=== PATIENT | female | born 1990 | race Two or more races ===

== ENCOUNTER 2024-07-24 19:34 | Emergency (ER) | payer OTHER ==
[~2024-07-24] VITALS: Ht 157.5 cm; Wt 52.2 kg
[2024-07-24] MEDS ORDERED: ORPHENADRINE CITRATE 30 MG/ML AMPUL IM STA (20:51)
[2024-07-24] MEDS ORDERED: DEXAMETHASONE SODIUM PHOSPHATE 4 MG/ML VIAL IM STA (20:51)
[2024-07-24] MEDS ORDERED: KETOROLAC TROMETHAMINE 60 MG VIAL IM STA (20:52)
[2024-07-24] MEDS ORDERED: PANTOPRAZOLE SODIUM 40 MG TABLET.DR PO STA (20:55)
[2024-07-24] MEDS ORDERED: ORPHENADRINE CITRATE 30 MG/ML AMPUL ONE (20:56)
[2024-07-24] MEDS ORDERED: KETOROLAC TROMETHAMINE 60 MG VIAL IM ONE (20:57)
[2024-07-24] MEDS ORDERED: DEXAMETHASONE SODIUM PHOSPHATE 4 MG/ML VIAL ONE (20:57)
== END 2024-07-24 22:06 | disposition home or self-care (01) ==
LOC: ER 19:37
DX: K29.70 Gastritis, unspecified, without bleeding (principal)